=== PATIENT | female | born 1975 | race Two or more races ===

== ENCOUNTER 2020-09-19 20:32 | Inpatient (IN) | payer MEDICAID ==
[~2020-09-19] VITALS: Ht 157.5 cm; Wt 56.0 kg
[2020-09-19] MEDS ORDERED: NITROGLYCERIN 0.4 MG SL TAB SL PRN (23:00)
[2020-09-19] MEDS ORDERED: MORPHINE SULF INJ 2 MG/ML SYRINGE 1ML IV PRN (23:00)
[2020-09-19] MEDS: PIPERACILLIN-TAZOB 3.375GM 100 ML IV SCH (23:39)
[2020-09-19] MEDS: MORPHINE SULF INJ 2 MG/ML SYRINGE 1ML IV PRN (23:39)
[2020-09-19] MEDS: SODIUM CHLORIDE 0.9% 1,000 ML IV SCH (23:40)
[2020-09-20] VITALS (7 sets, daily range): BP systolic 110–139; BP diastolic 68–86
[2020-09-20 01:27] LABS: Urine Bacteria NONE SEEN /hpf (None Seen); Urine Blood Negative /uL (Negative); Urine WBC 5 /hpf (0 - 5)
[2020-09-20 01:37] LABS: Urine Specific Gravity > 1.050 (1.001-1.035)
[2020-09-20] MEDS ORDERED: DIPH25CA66 PO (01:38)
[2020-09-20] MEDS: MORPHINE SULF INJ 2 MG/ML SYRINGE 1ML IV PRN ×4 (04:26→23:55)
[2020-09-20] MEDS: PIPERACILLIN-TAZOB 3.375GM 100 ML IV SCH ×3 (05:02→23:54)
[2020-09-20 07:15] LABS: Basophils # (auto) 0 10 ^3/uL (0-0.2); Basophils % (auto) 0.7 % (0.0-2.0); Eosinophils # (auto) 0.2 10 ^3/uL (0-0.8); Eosinophils % (auto) 3.6 % (0.0-7.0); Hematocrit 36.3 % (36.0-46.0); Hemoglobin 12.5 g/dL (12.2-16.2); Lymphocytes # (auto) 1.8 10 ^3/uL (0.4-5.4); Lymphocytes % (auto) 28.1 % (10.0-50.0); Mean Corpuscular Hemoglobin 32.2 pg (28.0-32.0); Mean Corpuscular Hgb Conc. 34.5 g/dL (32.0-36.0); Mean Corpuscular Volume 93.3 fL (80.0-100.0); Monocytes # (auto) 0.4 10 ^3/uL (0-1.3); Monocytes % (auto) 6.7 % (0.0-12.0); Neutrophils # (auto) 3.9 10 ^3/uL (1.6-8.6); Neutrophils % (auto) 60.9 % (37.0-80.0); Platelet Count (auto) 245 10^3/uL (140-450); Red Blood Cells 3.89 10^6/uL (4.0-5.20); Red Cell Distribution Width 13.5 % (11.8-14.3); White Blood Cell 6.4 10^3/uL (4.4-10.8)
[2020-09-20 07:41] LABS: Potassium 3.3 mmol/L (3.5-5.1)
[2020-09-20 07:48] LABS: Albumin 2.8 g/dL (3.4-5.0); BUN/Creatinine Ratio 15.9; Bilirubin, Total 2.8 mg/dL (0.2-1.0); Calcium 8.2 mg/dL (8.5-10.1); INR 0.97 (0.9-1.15); Partial Thromboplastin Time 29.6 sec (23.0-31.2); Total Protein 6.3 g/dL (6.4-8.2)
[2020-09-20] MEDS: ONDANSETRON HCL 4 MG/2 ML VIAL IV PRN ×3 (12:52→23:55)
[2020-09-20] MEDS: SODIUM CHLORIDE 0.9% 1,000 ML IV SCH ×2 (13:04→23:55)
[2020-09-20] MEDS ORDERED: GADOTERATE MEG 7.5 MMOL/15ml INJ (0.5MMOL/ml) IV ONE (13:44)
[2020-09-21 05:00] VITALS: BP 128/78
[2020-09-21] MEDS: SODIUM CHLORIDE 0.9% 1,000 ML IV SCH ×3 (05:24→23:57)
[2020-09-21] MEDS: PIPERACILLIN-TAZOB 3.375GM 100 ML IV SCH ×4 (05:39→23:57)
[2020-09-21 09:00] VITALS: BP 128/75
[2020-09-21] MEDS: ONDANSETRON HCL 4 MG/2 ML VIAL IV PRN ×3 (10:35→23:58)
[2020-09-21] MEDS: MORPHINE SULF INJ 2 MG/ML SYRINGE 1ML IV PRN ×3 (10:35→23:57)
[2020-09-21 13:00] VITALS: BP 137/86
[2020-09-21 15:00] VITALS: BP 136/62
[2020-09-21 17:00] VITALS: BP 136/62
[2020-09-21 21:10] LABS: Basophils # (auto) 0.1 10 ^3/uL (0-0.2); Basophils % (auto) 0.9 % (0.0-2.0); Eosinophils # (auto) 0.1 10 ^3/uL (0-0.8); Eosinophils % (auto) 1.8 % (0.0-7.0); Hematocrit 35.9 % (36.0-46.0); Hemoglobin 12.5 g/dL (12.2-16.2); Lymphocytes # (auto) 1.6 10 ^3/uL (0.4-5.4); Lymphocytes % (auto) 28.8 % (10.0-50.0); Mean Corpuscular Hemoglobin 32.3 pg (28.0-32.0); Mean Corpuscular Hgb Conc. 34.8 g/dL (32.0-36.0); Mean Corpuscular Volume 92.9 fL (80.0-100.0); Monocytes # (auto) 0.4 10 ^3/uL (0-1.3); Monocytes % (auto) 7.1 % (0.0-12.0); Neutrophils # (auto) 3.4 10 ^3/uL (1.6-8.6); Neutrophils % (auto) 61.4 % (37.0-80.0); Nucleated Red Blood Cells % 0.1 %; Platelet Count (auto) 261 10^3/uL (140-450); Red Blood Cells 3.86 10^6/uL (4.0-5.20); White Blood Cell 5.6 10^3/uL (4.4-10.8)
[2020-09-21 21:50] LABS: Albumin 2.8 g/dL (3.4-5.0); Bilirubin, Direct 2.6 mg/dL (0-0.2); Calcium 8.2 mg/dL (8.5-10.1); Potassium 3.4 mmol/L (3.5-5.1)
[2020-09-21 21:53] LABS: BUN/Creatinine Ratio 11.3; Total Protein 6.4 g/dL (6.4-8.2)
[2020-09-21 22:00] VITALS: BP 137/82
[2020-09-22 05:00] VITALS: BP 125/76
[2020-09-22] MEDS: PIPERACILLIN-TAZOB 3.375GM 100 ML IV SCH ×3 (05:46→17:47)
[2020-09-22 06:20] LABS: Basophils # (auto) 0 10 ^3/uL (0-0.2); Basophils % (auto) 0.7 % (0.0-2.0); Eosinophils # (auto) 0.2 10 ^3/uL (0-0.8); Eosinophils % (auto) 2.4 % (0.0-7.0); Hematocrit 34.9 % (36.0-46.0); Hemoglobin 12.2 g/dL (12.2-16.2); Lymphocytes # (auto) 1.6 10 ^3/uL (0.4-5.4); Lymphocytes % (auto) 25.8 % (10.0-50.0); Mean Corpuscular Hemoglobin 32.7 pg (28.0-32.0); Mean Corpuscular Hgb Conc. 35.1 g/dL (32.0-36.0); Mean Corpuscular Volume 93.3 fL (80.0-100.0); Monocytes # (auto) 0.4 10 ^3/uL (0-1.3); Monocytes % (auto) 6.5 % (0.0-12.0); Neutrophils # (auto) 4.1 10 ^3/uL (1.6-8.6); Neutrophils % (auto) 64.6 % (37.0-80.0); Platelet Count (auto) 244 10^3/uL (140-450); Red Blood Cells 3.74 10^6/uL (4.0-5.20); Red Cell Distribution Width 13.6 % (11.8-14.3); White Blood Cell 6.4 10^3/uL (4.4-10.8)
[2020-09-22 06:41] LABS: Potassium 3.4 mmol/L (3.5-5.1)
[2020-09-22 06:50] LABS: Albumin 2.7 g/dL (3.4-5.0); BUN/Creatinine Ratio 8.5; Bilirubin, Direct 1.7 mg/dL (0-0.2); Bilirubin, Total 2.4 mg/dL (0.2-1.0); Calcium 8.4 mg/dL (8.5-10.1); Total Protein 6.3 g/dL (6.4-8.2)
[2020-09-22] MEDS ORDERED: IOHEXOL 300 MG/ML 100ML BOTTLE IJ ONE (07:13)
[2020-09-22] MEDS ORDERED: fentaNYL CITRATE 100 MCG/2 ML VL ONE (07:31)
[2020-09-22] MEDS ORDERED: MEPERIDINE HCL (25 MG/ML) 1ML VIAL ONE (07:31)
[2020-09-22] MEDS ORDERED: MIDAZOLAM HCL 1MG/1ML-2 ML VIAL ONE (07:31)
[2020-09-22] MEDS ORDERED: DexAMETHasone SOD PHOS 10MG/1ML VIAL INJ ONE (07:35)
[2020-09-22] MEDS ORDERED: PROPOFOL 10 MG/ML 20 ML IV ONE (07:35)
[2020-09-22] MEDS ORDERED: ONDANSETRON HCL 4 MG/2 ML VIAL ONE (08:28)
[2020-09-22] MEDS ORDERED: MORPHINE SULFATE 4 MG/ML SYR/VIAL IV PRN (08:45)
[2020-09-22] MEDS ORDERED: ePHEDrine SULFATE 50 MG/ML AMP IV PRN (08:45)
[2020-09-22] MEDS ORDERED: ONDANSETRON HCL 4 MG/2 ML VIAL IV PRN (08:45)
[2020-09-22] MEDS ORDERED: LABETALOL HCL 5 MG/ML 4ML SYRINGE IV PRN (08:45)
[2020-09-22] MEDS ORDERED: HYDROmorphone HCL 2 MG/ML VL IV PRN (08:45)
[2020-09-22] MEDS ORDERED: MIDAZOLAM HCL 1MG/1ML-2 ML VIAL IV PRN (08:45)
[2020-09-22] MEDS: SODIUM CHLORIDE 0.9% 1,000 ML IV SCH ×2 (10:34→21:00)
[2020-09-22] MEDS ORDERED: POTASSIUM CHL 20MEQ/100ML 100 ML IV ONE (11:45)
[2020-09-22] MEDS: MORPHINE SULF INJ 2 MG/ML SYRINGE 1ML IV PRN ×3 (11:49→22:01)
[2020-09-22 12:30] VITALS: BP 126/69
[2020-09-22] MEDS: HYDROcodone-ACET 5/325MG TAB PO PRN (15:10)
[2020-09-22 16:29] VITALS: BP 128/65
[2020-09-22] MEDS: ONDANSETRON HCL 4 MG/2 ML VIAL IV PRN ×2 (17:47→22:01)
[2020-09-22 22:00] VITALS: BP 130/66
[2020-09-23] MEDS: SODIUM CHLORIDE 0.9% 1,000 ML IV SCH ×2 (00:06→17:49)
[2020-09-23] MEDS: PIPERACILLIN-TAZOB 3.375GM 100 ML IV SCH ×4 (00:06→18:41)
[2020-09-23 05:00] VITALS: BP 120/71
[2020-09-23 05:41] LABS: Basophils # (auto) 0 10 ^3/uL (0-0.2); Basophils % (auto) 0.3 % (0.0-2.0); Eosinophils # (auto) 0 10 ^3/uL (0-0.8); Eosinophils % (auto) 0.4 % (0.0-7.0); Hematocrit 34.7 % (36.0-46.0); Lymphocytes % (auto) 20.6 % (10.0-50.0); Mean Corpuscular Hemoglobin 32.4 pg (28.0-32.0); Mean Corpuscular Hgb Conc. 34.7 g/dL (32.0-36.0); Mean Corpuscular Volume 93.4 fL (80.0-100.0); Monocytes # (auto) 0.7 10 ^3/uL (0-1.3); Monocytes % (auto) 6.9 % (0.0-12.0); Neutrophils % (auto) 71.8 % (37.0-80.0); Platelet Count (auto) 245 10^3/uL (140-450); Red Blood Cells 3.71 10^6/uL (4.0-5.20); Red Cell Distribution Width 13.4 % (11.8-14.3); White Blood Cell 9.8 10^3/uL (4.4-10.8)
[2020-09-23 06:01] LABS: Calcium 8.5 mg/dL (8.5-10.1); Potassium 3.2 mmol/L (3.5-5.1)
[2020-09-23 06:05] LABS: Albumin 2.7 g/dL (3.4-5.0); BUN/Creatinine Ratio 10.7; Bilirubin, Total 4.8 mg/dL (0.2-1.0)
[2020-09-23 09:00] VITALS: BP 126/68
[2020-09-23] MEDS ORDERED: BUPIVACAINE 0.25% INJ 50ML VIAL ONE (09:44)
[2020-09-23] MEDS ORDERED: ceFAZolin 1GM/50ML 50 ML IV ONE (10:38)
[2020-09-23] MEDS ORDERED: ROCURONIUM 10MG/ML 10ML VIAL IV ONE (10:45)
[2020-09-23] MEDS ORDERED: fentaNYL CITRATE 100 MCG/2 ML VL ONE (10:51)
[2020-09-23] MEDS ORDERED: MIDAZOLAM HCL 1MG/1ML-2 ML VIAL ONE (10:56)
[2020-09-23] MEDS ORDERED: MEPERIDINE HCL (25 MG/ML) 1ML VIAL ONE (10:57)
[2020-09-23] MEDS ORDERED: PROPOFOL 10 MG/ML 20 ML IV ONE (11:07)
[2020-09-23] MEDS ORDERED: DexAMETHasone SOD PHOS 10MG/1ML VIAL INJ ONE (11:07)
[2020-09-23] MEDS ORDERED: HYDROmorphone HCL 2 MG/ML VL IV PRN (11:30)
[2020-09-23] MEDS ORDERED: ePHEDrine SULFATE 50 MG/ML AMP IV PRN (11:30)
[2020-09-23] MEDS ORDERED: MORPHINE SULFATE 4 MG/ML SYR/VIAL IV PRN (11:30)
[2020-09-23] MEDS ORDERED: ONDANSETRON HCL 4 MG/2 ML VIAL IV PRN (11:30)
[2020-09-23] MEDS ORDERED: MIDAZOLAM HCL 1MG/1ML-2 ML VIAL IV PRN (11:30)
[2020-09-23] MEDS ORDERED: LABETALOL HCL 5 MG/ML 4ML SYRINGE IV PRN (11:30)
[2020-09-23] MEDS ORDERED: KETOROLAC TROMETH 30 MG/ML 1ML VIAL IV ONE (11:30)
[2020-09-23] MEDS ORDERED: ONDANSETRON HCL 4 MG/2 ML VIAL ONE (11:39)
[2020-09-23] MEDS ORDERED: NEOSTIGMINE 1 MG/ML INJ (10mg/10ML VIAL) ONE (11:57)
[2020-09-23] MEDS ORDERED: GLYCOPYRROLATE 0.2 MG/ML 1ML VIAL ONE (12:48)
[2020-09-23 13:00] VITALS: BP 145/71
[2020-09-23 17:00] VITALS: BP 125/74
[2020-09-23] MEDS: MORPHINE SULF INJ 2 MG/ML SYRINGE 1ML IV PRN (18:54)
[2020-09-23] MEDS: ONDANSETRON HCL 4 MG/2 ML VIAL IV PRN (18:54)
[2020-09-23 21:35] VITALS: BP 116/71
[2020-09-24] MEDS: PIPERACILLIN-TAZOB 3.375GM 100 ML IV SCH ×3 (00:55→13:38)
[2020-09-24] MEDS: MORPHINE SULF INJ 2 MG/ML SYRINGE 1ML IV PRN ×3 (00:55→13:59)
[2020-09-24] MEDS: ONDANSETRON HCL 4 MG/2 ML VIAL IV PRN ×2 (00:55→06:31)
[2020-09-24] MEDS: SODIUM CHLORIDE 0.9% 1,000 ML IV SCH ×2 (03:00→13:00)
[2020-09-24 05:00] VITALS: BP 131/65
[2020-09-24 06:22] LABS: Albumin 2.5 g/dL (3.4-5.0); Calcium 8.4 mg/dL (8.5-10.1); Potassium 3.3 mmol/L (3.5-5.1)
[2020-09-24 06:26] LABS: BUN/Creatinine Ratio 10.7; Bilirubin, Total 1.8 mg/dL (0.2-1.0); Total Protein 5.9 g/dL (6.4-8.2)
[2020-09-24 08:45] VITALS: BP 133/73
[2020-09-24] MEDS ORDERED: DOCUSATE SOD 100 MG CAP PO PRN (09:15)
[2020-09-24] MEDS: HYDROcodone-ACET 5/325MG TAB PO PRN (09:34)
[2020-09-24] MEDS ORDERED: POTASSIUM EFFERVESENT TAB 25 MEQ PO ONE (12:45)
[2020-09-24] MEDS ORDERED: HYDR-4902 PO (14:50)
== END 2020-09-24 14:27 | disposition home health service (06) | DRG 263 ==
LOC: TELE-WESTW 21:53
PROVIDERS: ADMIT Internal Medicine; ATTEND Internal Medicine
PROC: 0FC98ZZ Extirpation of Matter from Common Bile Duct, Via Natural or Artificial Opening Endoscopic (ICD-10-PCS; 2020-09-22)
PROC: 0F798ZZ Dilation of Common Bile Duct, Via Natural or Artificial Opening Endoscopic (ICD-10-PCS; 2020-09-22)
PROC: BF141ZZ Fluoroscopy of Gallbladder, Bile Ducts and Pancreatic Ducts using Low Osmolar Contrast (ICD-10-PCS; 2020-09-22)
PROC: 0FT44ZZ Resection of Gallbladder, Percutaneous Endoscopic Approach (ICD-10-PCS; principal; 2020-09-23 10:50)
DX: K80.63 Calculus of gallbladder and bile duct with acute cholecystitis with obstruction (principal); D18.03 Hemangioma of intra-abdominal structures; K76.9 Liver disease, unspecified; R79.89 Other specified abnormal findings of blood chemistry; N39.0 Urinary tract infection, site not specified; Z80.0 Family history of malignant neoplasm of digestive organs; Z82.49 Family history of ischemic heart disease and other diseases of the circulatory system; Z83.3 Family history of diabetes mellitus; Z90.711 Acquired absence of uterus with remaining cervical stump; Z20.822 Contact with and (suspected) exposure to COVID-19
CPT/HCPCS: 36415; 71045; 74018; 74181; 74183; 76000; 78226; 80048; 80053; 80076; 81001; 81025; 83690; 85025; 85610; 85730; 86850; 86900; 86901; 87081; 87086; 87426; G0378; J0690; J1100; J2250; J2405; J2543; J2704; J3480; J3490

== ENCOUNTER 2021-11-10 18:57 | Emergency (ER) | payer OTHER, MEDICAID ==
[~2021-11-10] VITALS: Ht 157.5 cm; Wt 53.1 kg
[~2021-11-10 18:57] MED LIST: HYDR-4902 PO
[2021-11-10 19:28] VITALS: BP 135/93
== END 2021-11-10 19:47 | disposition home or self-care (01) ==
LOC: ER 18:57
DX: S50.12XA Contusion of left forearm, initial encounter (principal); V43.52XA Car driver injured in collision with other type car in traffic accident, initial encounter; Y93.89 Activity, other specified; Y92.410 Unspecified street and highway as the place of occurrence of the external cause; Y99.8 Other external cause status
CPT/HCPCS: 73090